=== PATIENT | female | born 1980 ===

== ENCOUNTER 2019-11-10 05:42 | Day surgery (SDC) | payer OTHER ==
[~2019-11-10 05:42] MED LIST: CITALOPRAM PO; CLONAZEPAM1 MG PO
[2019-11-10] MEDS ORDERED: Tylenol #3 PO (11:44)
[2019-11-10] MEDS ORDERED: MONDOXYNE NL100 MG PO (11:44)
== END 2019-11-10 14:05 | disposition home or self-care (01) ==
LOC: CIR.AMB 05:42 → ADM 12:30 → CIR.AMB 12:30
PROVIDERS: ATTEND Obstetrics & Gynecology
DX: D25.0 Submucous leiomyoma of uterus (principal); N84.0 Polyp of corpus uteri

== ENCOUNTER 2021-12-31 11:45 | Inpatient (IN) | payer OTHER ==
[~2021-12-31] VITALS: Ht 160 cm; Wt 104.3 kg
[~2021-12-31 11:45] MED LIST changes: +MONDOXYNE NL100 MG PO; +Tylenol #3 PO
[2021-12-31] MEDS ORDERED: PROZAC10 MG PO (15:57)
[2021-12-31] MEDS ORDERED: CLONAZEPAM0.5 MG PO (15:58)
[2021-12-31] MEDS ORDERED: TOPROL XL25 M1 PO (15:58)
[2021-12-31] MEDS ORDERED: PROTONIX20 MG PO (15:58)
[2022-01-03] MEDS ORDERED: Tylenol #3 PO (09:19)
[2022-01-03] MEDS ORDERED: NAPR500T14 PO (09:19)
== END 2022-01-03 12:51 | disposition home or self-care (01) | DRG 743 ==
LOC: O/R 01-02 07:30 → OB/GYN 01-02 07:30 → SURG 01-02 11:45 → OB/GYN 01-02 15:54
PROVIDERS: ADMIT Obstetrics & Gynecology; ATTEND Obstetrics & Gynecology
PROC: 0UT94ZZ Resection of Uterus, Percutaneous Endoscopic Approach (ICD-10-PCS; principal; 2022-01-02)
PROC: 0TJB8ZZ Inspection of Bladder, Via Natural or Artificial Opening Endoscopic (ICD-10-PCS; 2022-01-02)
DX: N80.0 Endometriosis of uterus (principal); N81.11 Cystocele, midline; Z20.822 Contact with and (suspected) exposure to COVID-19